=== PATIENT | female | born 1950 | race Caucasian/White ===

== ENCOUNTER 2019-01-18 14:14 | Emergency (ER) | payer OTHER ==
[~2019-01-18] VITALS: Ht 157.5 cm; Wt 76.7 kg
[2019-01-18 14:19] VITALS: Ht 157.5 cm; Wt 76.7 kg
[2019-01-18 18:28] VITALS: BP 130/108
== END 2019-01-18 18:28 | disposition home or self-care (01) ==
LOC: ED 14:14
DX: M75.32 Calcific tendinitis of left shoulder (principal); I10 Essential (primary) hypertension; Z88.5 Allergy status to narcotic agent; Z98.890 Other specified postprocedural states
CPT/HCPCS: J2001; J3301